=== PATIENT | male | born 1965 | race Caucasian/White ===

== ENCOUNTER → 2017-07-03 | Outpatient (CLI) | payer OTHER ==
[~2017-07-03] MED LIST: SINCALIDE INJ 1.7 MCG in SODIUM CHLORIDE 0.9% 100ML 100 ML IV ONE
--- NOTE | 2017-07-03 10:58 | DIAGNOSTIC IMAGING REPORT ---
NUCLEAR MEDICINE HEPATOBILIARY SCAN WITH EJECTION FRACTION HISTORY: Generalized abdominal pain. Nausea. COMPARISON: None. TECHNIQUE: Immediately following the intravenous administration of 5.1 mCi Tc-99m Choletec, dynamic anterior abdominal imaging pre/post 1.7 mcg of Kinevac was performed. FINDINGS: Uniform hepatic tracer accumulation is shown. Prompt intrahepatic biliary excretion is seen. The gallbladder and common bile duct are visualized by 20 minutes. Slightly delayed visualization of the small bowel which was identified at 73 minutes. The gall bladder ejection fraction following administration of Kinevac was 92% (normal >35%). IMPRESSION: 1. No evidence for cystic duct obstruction. 2. Gallbladder ejection fraction calculated to be 92 %. 3. There is slight delayed visualization of the small bowel at 73 minutes. However, this could be a normal variant. Electronically signed by: Jeovany Riggs M.D. 07/03/2017 10:57 AM Dictated Date/Time: 07/03/2017 10:55 AM
== END | disposition home or self-care (01) ==
LOC: C.NUCL 08:36
PROVIDERS: ATTEND Internal Medicine Gastroenterology
DX: R10.9 Unspecified abdominal pain (principal); R11.0 Nausea